=== PATIENT | male | born 1965 | race Caucasian/White ===

== ENCOUNTER 2022-01-21 13:36 | Outpatient (REF) | payer BC, SELFPAY ==
[2022-01-21 14:01] LABS: Hemoglobin* 14.7 gm/dL (13.5-17.5)
[2022-01-22 17:25] LABS: Prostate Specific Antigen Free 0.2 ng/mL; Prostate Specific Antigen%Free 20 %; Sex Hormone Binding Globulin 29 nmol/L (19-76); Testosterone, Adult Male 673 ng/dL (300-890); Testosterone, Free Calculation 142 pg/mL (47-244); Testosterone, Percentage Free 2.1 % (1.6-2.9)
== END 2022-01-21 13:37 | disposition home or self-care (01) ==
LOC: NPINS 13:36
DX: E29.1 Testicular hypofunction (principal)
CPT/HCPCS: 84153; 84154; 84270; 84402; 84403; 85018

== ENCOUNTER 2022-08-20 03:02 | Emergency (ER) | payer BC, SELFPAY ==
[2022-08-20 03:08] VITALS: BP 155/87; PULSE 84; RESP 22; TEMP 36.7; O2SAT 100; BMI 31.9
--- NOTE | 2022-08-20 03:25 | ED_ITS ---
HPI - General Adult General Chief complaint: Flank Pain Stated complaint: Vomitting, pain r lower back Time Seen by Provider: 08/20/22 03:13 Source: patient Mode of arrival: ambulatory Limitations: no limitations History of Present Illness HPI narrative: 57-year-old male with prior history of kidney stone presents to the emergency department with right flank pain that started approximately 14 hours ago. Initially was mild and dull and achy, did not raise significant concern. He took 1 Aleve tablet in improved moderately. He took some Tylenol at 5:00 p.m.. At that time pain did not radiate was not accompanied by fever, nausea or any other significant symptoms. He has not noted any dysuria or any blood in his urine. He says that approximately 11:30 p.m. which is about 3-1/2 hours prior to arrival, the pain became much more severe, accompanied by vomiting. Pain is now in the right flank area but is also wrapping around the right inguinal area. It is accompanied by significant nausea. Pain does come in crampy waves. No trauma or injury. No history of chronic kidney disease. Past medical history notable for kidney stone about 10-12 years ago per his estimate that did not require surgery or other major intervention. He also reports a history of hypertension, hyperlipidemia and erectile dysfunction. Home meds are amlodipine, metoprolol, losartan, statin and daily Cialis. Surgical history notable for remote lumbar fusion and what sounds like a trans urethral prostate resection. Social history reviewed, nonsmoker, denies intoxication. ROS is notable for the urinary and generalized symptoms as well as she eyes above. Otherwise he denies times 12 systems. Related Data Home Medications Medication Instructions Recorded Confirmed tadalafil 5 mg tablet 5 mg PO DAILY 08/20/22 08/20/22 Previous Rx's Medication Instructions Recorded amlodipine 10 mg tablet 10 mg PO QDAY #90 tabs 11/14/21 metoprolol succinate 100 mg 100 mg PO QDAY #90 tabs 11/14/21 tablet,extended release 24 hr atorvastatin 20 mg tablet 20 mg PO QDAY #90 tabs 11/18/21 losartan 100 mg tablet See Rx Instructions .Route 05/07/22 .COMPLEX #90 tabs prednisone 20 mg tablet 20 mg PO BID #10 tabs 08/20/22 Allergies Allergy/AdvReac Type Severity Reaction Status Date / Time No Known Drug Allergies Allergy Verified 08/20/22 03:10 [facility] Medical History (Updated 08/20/22 @ 04:46 by Fani Steen MD) History of kidney stones ?Z87.442 - Personal history of urinary calculi (ICD-10) Social History Smoking Status: Unknown if ever smoked How often do you have a drink containing alcohol: never AUDIT-C Alcohol total score: 0 Non-prescribed substance use: denies use Exam Const: Vital Signs, click to edit/add: Vital Signs - 24 hr 08/20/22 03:08 08/20/22 04:18 Temperature 98.1 F Pulse Rate [Left P ulse Oximeter] 84 Respiratory Rate 22 16 Blood Pressure [Ri ght Upper Arm] 155/87 H Pulse Oximetry 100 93 Oxygen Delivery Me thod Nasal Cannula Oxygen Flow Rate 1 Documenting provider has reviewed patient's vital signs: yes Common normals: alert Other: Mild distress, good historian. Cooperative. HENMT: Common normals: normocephalic Head and scalp: normocephalic Face and sinus: normal facial exam Mouth: oral and palatal mucosa normal Eye: Common normals: conjunctivae normal General eye: normal appearance of both eyes Conjunctiva: conjunctiva(e) normal Neck & C-Spine: Common normals: no lymphadenopathy Resp: Common normals: normal respiratory effort, no use of accessory muscles and clear to auscultation bilaterally Effort & inspection: able to speak in complete sentences Auscultation: clear to auscultation bilaterally Cardio: Common normals: regular rate, regular rhythm, S1 normal heart sound, S2 normal heart sound and no murmurs Rate: regular rate Rhythm: regular rhythm Heart sounds: S1 normal and S2 normal GI: Common normals: Normal to inspection, nondistended, normoactive bowel sounds present, soft to palpation, non-tender, no hepatosplenomegaly and no masses Palpation: soft and no hepatosplenomegaly : Other: Right CVA tenderness, left side normal. Back & Pelvis: Common normals: thoracic and lumbar spine normal to inspection and no thoracic nor lumbar tenderness Extremity: Common normals: normal to inspection, normal capillary refill and no pedal edema Neuro: Sensorium/orientation: alert Motor exam: no tremor noted and no movement abnormalities noted Psych: Attitude: engaged Memory/cognition: memory grossly intact Insight: insight good Judgement: judgment good Skin: Common normals: no rashes or lesions noted General skin exam: no rashes or lesions noted Course Vital Signs Vital signs: Initial Vital Signs Temperature 98.1 F 08/20/22 03:08 Temperature Source Temporal Artery Scan 08/20/22 03:08 Pulse Rate 84 08/20/22 03:08 Respiratory Rate 22 08/20/22 03:08 Blood Pressure 155/87 H 08/20/22 03:08 Blood Pressure Mean 109 08/20/22 03:08 Blood Pressure Position Sitting 08/20/22 03:08 Pulse Oximetry 100 08/20/22 03:08 Vital Signs Temperature 98.1 F 08/20/22 03:08 Pulse Rate 84 08/20/22 03:08 Respiratory Rate 22 08/20/22 03:08 Blood Pressure 155/87 H 08/20/22 03:08 Pulse Oximetry 100 08/20/22 03:08 Temperature 98.1 F 08/20/22 03:08 Pulse Rate 84 08/20/22 03:08 Respiratory Rate 16 08/20/22 04:18 Blood Pressure 155/87 H 08/20/22 03:08 Pulse Oximetry 93 08/20/22 04:18 Oxygen Delivery Method Nasal Cannula 08/20/22 04:18 Oxygen Flow Rate 1 08/20/22 04:18 Medical Decision Making MDM Narrative Medical decision making narrative: Suspect kidney stone, cannot rule out lumbar spine, other musculoskeletal etiologies, appendicitis, colitis or other intra-abdominal pathology. Patient initially unable to provide urine sample. Counseled him that this would matter because the type of CT scan I am able to order would be better determined by knowing if there was presence of any blood in his urine or not. Will place IV, give 15 mg of IV Toradol and 4 mg of Zofran. Will start normal saline. Anticipate CT scan of the abdomen pelvis without contrast, awaiting urinalysis and basic labs. Update: Patient did not have significant improvement on Toradol which is quite telling. Given 4 mg of IV morphine with improvement in pain. CT scan did not show any kidney stone but did show the source was pain which is likely lumbar facet arthritis. Findings discussed with patient. Reassuring white count, CRP and remainder of labs. Will start prednisone 40 mg p.o. x1 and continue on 20 mg b.i.d.. Will give 10 mg of Flexeril p.o. x1, 5 mg of oxycodone again. He will need a clark driver. Limited supply of oxycodone, counseled on Tylenol and ibuprofen. Alarm symptoms reviewed. Will need primary care follow-up. Off work tonight. Discussed that he will need a long-term plan to manage this condition as he is likely to get further flares. Lab Data Lab results reviewed: Yes I reviewed the patient's lab results Lab results narrative: Labs all reassuring Labs: Lab Results 08/20/22 08/20/22 Range/Units 03:25 03:28 WBC 10.03 (4.50-11.00) K/uL RBC 5.02 (4.30-5.90) m/uL Hgb 15.5 (13.5-17.5) gm/dL Hct 44.8 (37.0-53.0) % MCV 89 (80-100) fL MCH 31 (26-34) pg MCHC 35 (32-36) gm/dL RDW Coeff of Jose Elias 12.5 (11.5-15.5) % Plt Count 248 (140-440) K/uL Neut % (Auto) 80.1 H (42.0-72.0) % Lymph % (Auto) 15.2 L (20-44) % [place] % (Auto) 3.6 (0.0-11.0) % Eos % (Auto) 0.5 (0.0-7.0) % Baso % (Auto) 0.4 (0.0-3.0) % Neut # (Auto) 8.00 H (1.7-7.0) K/uL Lymph # (Auto) 1.50 (0.90-2.90) K/uL [place] # (Auto) 0.40 (0.00-0.90) K/UL Eos # (Auto) 0.05 (0.00-0.50) K/uL Baso # (Auto) 0.04 (0.00-0.30) K/uL Sodium 136 (135-149) mmol/L Potassium 4.0 (3.6-5.1) mmol/L Chloride 102 (96-114) mmol/L Carbon Dioxide 23 (20-32) mmol/L BUN 19 (7-30) mg/dL Creatinine 1.0 (0.5-1.5) mg/dL Estimated Creat Clear 78.85 Estimated GFR 88 ml/min Glucose 146 H (60-115) mg/dL Calcium 9.6 (8.4-10.6) mg/dL C-Reactive Protein < 0.5 L (0.5-1.0) mg/dL Urine Color Yellow (Yellow) Urine Appearance Clear (Clear) Urine pH 7.5 (5.0-8.5) Ur Specific [place] 1.020 (1.000-1.030) Urine Protein 1+ A (Negative) Urine Glucose (UA) Negative (Negative) Urine Ketones Trace A (Negative) Urine Blood Trace-intact A (Negative) Urine Nitrite Negative (Negative) Urine Bilirubin Negative (Negative) Urine Urobilinogen 0.2 (0.2-1.0) Ur Leukocyte Esterase Negative (Negative) Urine RBC 0-2 (0-2) Urine WBC 0-2 (0-5) Ur Squamous Epith Cells Few (None-Few) Amorphous Sediment Few A (None) Urine Bacteria Few A (None) Imaging Data CT scan - pelvis: Attestation: I have reviewed the pertinent imaging results. My impression: No stone. Some constipation. Lots of lumbar arthropathy Radiologist's impression: IMPRESSION: No evidence of radiopaque nephroureterolithiasis or hydroureteronephrosis. No evidence of acute intra-abdominal/pelvic process on this unenhanced CT. Postoperative changes from L4-S1 posterior spinal fusion and decompression along with interbody disc spacers at these levels. There is severe degenerative spondylosis at the subjacent L3-4 level with 7-8 mm of retrolisthesis of L3 on L4. This along with disc bulge and severe facet arthropathy results in moderate- severe spinal canal stenosis at L3-L4. Discharge Plan Discharge Clinical Impression: Arthritis of facet joint of lumbar spine Patient Disposition: Home w/ Parent or Adult Condition: Improved Instructions: Lumbar Radiculopathy (ED) Additional Instructions: The CT scan reveals no signs of kidney stones which is great news. The blood work also confirms no infection, no new inflammatory condition or other abnormality. It does show a new area of arthritis on the side part of your lower spine, different than your previous back problems. Unfortunately, this is likely to flare up on you again and will require a long-term plan. I will be starting on some prednisone, and anti-inflammatory medication that you can take for the next few days. It should make your pain markedly better. As you probably remember it tends to work well with the 1st flare but may not be as effective in future flares. I strongly recommend that you follow-up with your primary care doctor and/or neurosurgeon to consider advanced imaging and further management. You may benefit from injections or other interventions down the road. Your next dose of prednisone will be around 2:00 p.m. this afternoon. Continue taking this twice daily for 5 days. I recommend not taking it within 5 hours of bedtime as it can make it difficult to sleep. It is okay if your doses are only spaced 8 hours apart to accommodate this. For pain, ibuprofen 600 mg every 6 hours and or Tylenol 1000 mg every 6 hours. Will give you a limited supply of oxycodone to use for severe pain. You will need to follow-up with your primary care or neurosurgery team for additional narcotic medication if needed, we do not recommend these medications long-term. If you have sudden loss of bowel or bladder function, significant weakness in your right leg, you should seek re-evaluation Activity Level: Activity as Tolerated Discharge Diet: Regular Prescriptions: New prednisone 20 mg tablet 20 mg PO BID Qty: 10 0RF No Action tadalafil 5 mg tablet 5 mg PO DAILY metoprolol succinate 100 mg tablet extended release 24 hr 100 mg PO QDAY Qty: 90 3RF amlodipine 10 mg tablet 10 mg PO QDAY Qty: 90 3RF atorvastatin 20 mg tablet 20 mg PO QDAY Qty: 90 3RF losartan 100 mg tablet See Rx Instructions .ROUTE .COMPLEX Qty: 90 3RF Dose Instruction: Take 1 tablet by mouth once daily Rx Instructions: Take 1 tablet by mouth once daily Follow Up/Referrals: Out Lab,Clinic [Referring] - Stand Alone Forms: [employer] Info Instructions
[2022-08-20] MEDS: KETOROLAC 15 MG/ML inj IVP (03:30)
[2022-08-20 03:35] LABS: Basophils Absolute Auto 0.04 K/uL (0.00-0.30); Basophils Percent Auto 0.4 % (0.0-3.0); Eosinophils Absolute Auto 0.05 K/uL (0.00-0.50); Eosinophils Percent Auto 0.5 % (0.0-7.0); Hematocrit 44.8 % (37.0-53.0); Hemoglobin* 15.5 gm/dL (13.5-17.5); Immature Granulocytes Abs Auto 0.02 K/uL (0.00-0.30); Immature Granulocytes Pct Auto 0.2 %; Lymphocytes Percent Auto 15.2 % (20-44); Mean Corpuscular HGB Conc 35 gm/dL (32-36); Mean Corpuscular Hemoglobin 31 pg (26-34); Mean Corpuscular Volume 89 fL (80-100); Monocytes Percent Auto 3.6 % (0.0-11.0); Neutrophils Percent Auto 80.1 % (42.0-72.0); Platelet Count* 248 K/uL (140-440); RDW Coefficient of Variation % 12.5 % (11.5-15.5); Red Blood Count 5.02 m/uL (4.30-5.90); White Blood Count* 10.03 K/uL (4.50-11.00)
[2022-08-20 03:35] LABS: Appearance Urine Clear (Clear); Bilirubin Urine Negative (Negative); Blood Urine Trace-intact (Negative); Color Urine Yellow (Yellow); Glucose Urine Negative (Negative); Ketones Urine Trace (Negative); Leukocyte Esterase Urine Negative (Negative); Nitrite Urine Negative (Negative); Protein Urine 1+ (Negative); Urobilinogen Urine 0.2 (0.2-1.0); pH Urine 7.5 (5.0-8.5)
[2022-08-20] MEDS: ONDANSETRON 2 MG/ML inj 4 MG IVP (03:35)
[2022-08-20 03:37] LABS: Slide Review Reflex No
[2022-08-20 03:42] LABS: Amorphous Sediment Urine Few; Bacteria Urine Few; RBC Urine 0-2 (0-2); Squamous Epithelial Cell Urine Few (None-Few); WBC Urine 0-2 (0-5)
[2022-08-20 03:47] LABS: Chloride* 102 mmol/L (96-114); Sodium* 136 mmol/L (135-149)
--- NOTE | 2022-08-20 03:47 | CRLHL7_ITS ---
For Patients: As a result of the Century Cures Act, medical imaging exams and procedure reports are released immediately into your electronic medical record. You may view this report before your referring provider. If you have questions, please contact your health care provider. INDICATION: flank pain TECHNIQUE: CT abdomen and pelvis without contrast, stone protocol. COMPARISON: None. FINDINGS: Kidney/ureters: Kidneys are normal in caliber. No kidney or ureteral stones and no hydronephrosis. No sign of perinephric inflammation. Ureters are normal in caliber. Liver/gallbladder/bile ducts: The liver is normal in size, shape and attenuation. Few subcentimeter hypodensities throughout the liver too small to characterize but statistically represent sister meningiomas. Suspect cholelithiasis. No biliary dilatation. Spleen/pancreas/adrenal glands: The spleen, adrenal glands and pancreas are within normal limits. GI tract: The bowel is unremarkable. Normal appendix. Abdominal wall/omentum/peritoneum: No free air or significant free fluid. No mass or inflammation. Vasculature: Abdominal aorta normal caliber with mild atherosclerosis. Lymph nodes: No lymphadenopathy. Pelvis: Unremarkable pelvis. Lower chest: Unremarkable. Bones: Postoperative changes from L4-S1 posterior spinal fusion and decompression along with interbody disc spacers at these levels. There is severe degenerative spondylosis at the subjacent L3-4 level with 7-8 mm of retrolisthesis of L3 on L4. This along with disc bulge and severe facet arthropathy results in moderate-severe spinal canal stenosis at L3-L4. IMPRESSION: No evidence of radiopaque nephroureterolithiasis or hydroureteronephrosis. No evidence of acute intra-abdominal/pelvic process on this unenhanced CT. Postoperative changes from L4-S1 posterior spinal fusion and decompression along with interbody disc spacers at these levels. There is severe degenerative spondylosis at the subjacent L3-4 level with 7-8 mm of retrolisthesis of L3 on L4. This along with disc bulge and severe facet arthropathy results in moderate-severe spinal canal stenosis at L3-L4. Please note that all CT scans at this facility use dose modulation, iterative reconstruction, and/or weight-based dosing when appropriate to reduce radiation dose to as low as reasonably achievable. Dictated by Mak Hernandez MD @ 08/20/2022 4:32:39 AM (Electronically Signed)
[2022-08-20 03:49] LABS: Est. Creatinine Clearance* 78.85; Estimated Glomerular Filt Rate 88 ml/min
[2022-08-20 03:50] LABS: Blood Urea Nitrogen* 19 mg/dL (7-30); Carbon Dioxide* 23 mmol/L (20-32)
[2022-08-20 03:51] LABS: Calcium* 9.6 mg/dL (8.4-10.6); Glucose* 146 mg/dL (60-115)
[2022-08-20 03:53] LABS: C Reactive Protein* < 0.5 mg/dL (0.5-1.0)
[2022-08-20] MEDS: 0.9 % SODIUM CHLORIDE 1000 ml 1,000 ML 6000 ML IV (04:04)
[2022-08-20] MEDS: MORPHINE 4 MG/ML INJ IVP (04:05)
[2022-08-20 04:18] VITALS: RESP 16; O2SAT 93
[2022-08-20 04:20] VITALS: O2SAT 94
[2022-08-20] MEDS: CYCLOBENZAPRINE HCL 10 MG TABLET PO (04:48)
[2022-08-20] MEDS: OXYCODONE 5 MG TABLET PO (04:48)
[2022-08-20] MEDS: predniSONE 20 MG TABLET 40 MG PO (04:48)
[2022-08-20 04:51] VITALS: RESP 16; O2SAT 96
[2022-08-20 05:00] VITALS: BP 143/81; PULSE 76; RESP 16; TEMP 36.7
== END 2022-08-20 05:29 | disposition home or self-care (01) ==
PROVIDERS: Emergency Provider Family Medicine
DX: M47.816 Spondylosis without myelopathy or radiculopathy, lumbar region (principal)
CPT/HCPCS: 36415; 74176; 80048; 81003; 81015; 85025; 86140; 87086; 96374; 96375; 99283; 99284; A9270; J1885; J2270; J2405; J7030; J7512

== ENCOUNTER 2022-10-24 11:58 | Outpatient (REF) | payer BC, SELFPAY ==
--- OUTSIDE RECORDS SUMMARY | 2022-10-24 12:05 | XMS_ITS | Continuity of Care Document ---
Author Name Unknown Organization [facility] Address [address] [place] [address] Phone Care Team Providers [employer] Executive Director Name Role Phone Jos Larson MD Unavailable Unavailable Medications Medication Instructions Dosage Effective Dates (start - stop) Status Comments tramadol 50 mg tablet take 1 tablet by ORAL route every 6 - 8 hours PRN/PAIN 50 MG - Active pt can pay OO P prednisone 10 mg tablet take 4 tabs once daily x 5 days, 2 tabs once daily x 7 days, 1 tab once daily x 10 days. Take with food. - Active oxycodone 5 mg Tab one every 8 hours as needed - Active Flexeril 10 mg Tab i tab PO up to 3x daily - Active oxycodone 5 mg Tab every 4-6 hours as needed - Active Medrol (Abhishek) 4 mg Tabs in a Dose Pack - Active Valium 5 mg Tab - Active Elavil 25 mgTABLET - Active Vicodin 5 mg-500 mg Tab every 8 hours as needed - Active tramadol 50 mg tablet take 1 tablet by ORAL route every 6 - 8 hours PRN/PAIN 50 MG - No Longer Active pt can pay OOP Procedures Procedure Date Office/Outpatient Visit,Est, Mod 2022 Office/Outpatient Visit,New, Mod 2022 Postop followup visit X-ray exam lower spine 2-3 views 2008 Postop followup visit X-ray exam lower spine 2-3 views 2008 Lumbar spine fusion, posterolateral Spine fusion, each add'lvertebra 2008 Lumbar spine fusion w/bone graft 2008 Spinal fusion, ea add'l interspace Remove lumbar spine lamina, 1 seg Remove added spine lamina, 1 seg 2008 Insert spine seg fix, post, 3-6 seg Apply spinal prosthetic device 09 Aspiration, bone marrow Allograft, spine surg, morselized PA Assist Lumbar spine fusion, posterola teral PA Assist Spine fusion, each add'lverteb ra PA Assist Remove lumbar spine lamina, 1 seg PA Assist Remove added spine lamina, 1 s eg PA Assist Insert spine seg fix, post, 3- 6 seg Office consultation, moderate 8 X-ray exam lwr spine, min 4 views Advance Directives Directive Yes / No Effective Date File Name No Information Encounters Encounter Description Practice Location Reason(s) For Visit Diagnoses Date Provider Providers Copied on Encounter [facility], [address], [place], [place], [id number], [place] tel:[phone] [facility] No Information [address] [facility], [address] [place] [address], [address], [place], [place], [id number], [place]. tel:[phone] [facility], [address], [place], [place], [id number], [place] tel:[phone] [facility] No Information 3 Larson Jos. [facility], [address] [place] [address], [address], [place], [place], [id number], . tel:[phone] Office/Outpa tient Visit,Est, Mod [facility], [address], [place], [place], [id number], [place] tel:[phone] [facility] Spinal stenosis, lumbar region with neurogenic claudicationEnc ounter for follow-up examination after completed treatment for conditions other than malignant neoplasm [address] [facility], [address], [address], [place], [place], [address], [place]. tel:[phone] Referring Provider: Jos Bean, [facility] [address], [address], [place], [address] . tel:[phone] Office/Outpa tient Visit,New, [facility], [address], [place], [place], [id number], [place] tel:[phone] [facility] Other spondylosis, lumbar regionArthrodes is statusSpinal stenosis, lumbar region without neurogenic claudication [address] [facility], [address], [place], [place], [id number], [place]. tel:[phone] Referring Provider: Jos Bean, [facility] [address], [address], [place], [address] . tel:[phone] [facility], [address] [place], [place] [address]Suite [facility], [place], [address], [place] tel:[phone] [facility] No Information [address] [facility], [address], [address], [place], [place], [id number], [place]. tel:[phone] [facility], [address] [place], [place] [address]Suite [facility], [place], [address], [place] tel:[phone] [facility] No Information [address] [facility], [address], [address], [place], [place], [id number], [place]. tel:[phone] [facility], [address], [place], [address], [place] tel:[phone] [facility] No Information [address] [facility], [address], [address], [place], [place], [id number], [place]. tel:[phone] [facility], [address], [place], [address], [place] tel:[phone] [facility] No Information [address] [facility], [address], [address], [place], [place], [id number], [place]. tel:[phone] [facility], [address], [place], [address], [place] tel:[phone] [facility] No Information [address] [facility], [address] [place] [address], [address], [place], [place], [id number], [place]. tel:[phone] [facility], [address], [place], [address], [place] tel:[phone] [facility] No Information [address] [facility], [address] [place] [address], [address], [place], [place], [id number], [place]. tel:[phone] Office consultation , moderate Z [facility], [address], [place], [address], [place] tel:[phone] [facility] No Information [address] [facility], [address], [address], [place], [place], [address], [place]. tel:[phone] Family History Family Member Type Diagnosis Age At Onset No Information Payers Payer name Insurance type Covered libertarian ID Dayami ny(s) [facility] [id number] Social History Type Description Quantity Date Captured Comments Alcohol Use Details Unknown Caffeine Use Details Unknown Tobacco Use Status No Information Smoking Status No Information Sex Male Chief Complaint And Reason For Visit No Information Reason For Referral Reason For Referral No Information Plan Of Treatment Date Type Action Status No Information History Of Present Illness Encounter Date Complaint History Of Prese nt Illness No Information Functional Status Date Functional Assessmen t No Information Instructions Date Instruction Additional Infor mation No Information Assessments Type Assessment Date No Information Patient Care Teams Name Effective Dates (start - stop) Status Members No Information
[2022-10-24 12:35] LABS: Hemoglobin* 14.2 gm/dL (13.5-17.5)
[2022-10-25 21:54] LABS: Sex Hormone Binding Globulin 28 nmol/L (19-76); Testosterone, Adult Male 341 ng/dL (300-890); Testosterone, Free Calculation 67 pg/mL (47-244)
== END 2022-10-24 11:59 | disposition home or self-care (01) ==
LOC: LAB 11:58
DX: E29.1 Testicular hypofunction (principal)
CPT/HCPCS: 36415; 84270; 84402; 84403; 85018

== ENCOUNTER 2022-11-26 14:47 | Outpatient (CLI) | payer BC, SELFPAY | END 2022-11-26 14:48 | disposition home or self-care (01) | PROVIDERS: PCP Family Medicine; Visit Provider Family Medicine | DX: I10 Essential (primary) hypertension (principal); E78.5 Hyperlipidemia, unspecified; E66.9 Obesity, unspecified; N40.0 Benign prostatic hyperplasia without lower urinary tract symptoms; Z12.5 Encounter for screening for malignant neoplasm of prostate | CPT/HCPCS: 80048; 80061; 84153 ==

== ENCOUNTER 2023-06-29 14:00 | Outpatient (REF) | payer BC, SELFPAY ==
--- OUTSIDE RECORDS SUMMARY | 2023-06-29 14:04 | XMS_ITS | Continuity of Care Document ---
Author Name Unknown Organization [facility] Address [address] [place] [address] Phone Care Team Providers Care Quartz Cutter Name Role Phone Jos Larson MD Unavailable [...] every 8 hours as needed - Active oxycodone 5 mg Tab every 4-6 hours as needed - Active Flexeril 10 mg Tab i tab PO up to 3x daily - Active Valium 5 mg Tab - Active Medrol (Abhishek) 4 mg Tabs in a Dose Pack - Active Vicodin 5 mg-500 mg Tab every 8 hours as needed - Active Elavil 25 mgTABLET - Active tramadol 50 mg tablet take 1 tablet by ORAL route every 6 - 8 hours PRN/PAIN 50 MG - No Longer Active pt can pay OOP Procedures Procedure Date Office/Outpatient Visit,Est, Mod 2023 OFFICE/OUTPATIENT VISIT EST Phone Office/Outpatient Visit,Est, Mod 2022 Office/Outpatient Visit,New, Mod [...] Diagnoses Date Provider Providers Copied on Encounter Office/Outpa tient Visit,Est, Mod [facility], [address], [place], [place], [id number], [place] tel:[phone] [facility] Spinal stenosis, lumbar region with neurogenic claudicationOth er intervertebral disc degeneration, lumbar region 4 Neo Arguello. [facility] [place], [address], [address], [place], [place], [id number], [place]. tel:[phone] Referring Provider: Jos Bean, [facility] [place] [address], [address], [place], [address] . tel:[phone] OFFICE/OUTPA TIENT VISIT EST Phone [facility], [address], [place], [place], [id number], [place] tel:[phone] [facility] - [facility] No Information 3 Neo Arguello. [facility] [place], [address], [address], [place], [place], [id number], [place]. tel:[phone] Referring Provider: Jos Bean, [facility] [place] [address], [address], [place], [address] . tel:[phone] [facility], [address], [place], [place], [id number], [place] tel:[phone] [facility] No Information 3 Neo Arguello. [facility], [address] [place] [address], [address], [place], [place], [id number], [place]. tel:[phone] Office/Outpa tient Visit,Est, Mod [facility], [address], [place], [place], [id number], [place] tel:[phone] [facility] Spinal stenosis, lumbar region with neurogenic claudicationEnc ounter for follow-up examination after completed treatment for conditions other than malignant neoplasm 3 Neo Arguello. [facility] [place], [address] [place] [address], [address], [place], [place], [id number], [place]. tel:[phone] Referring Provider: Jos Bean, [facility] [place] [address], [address], [place], [address] . tel:[phone] Office/Outpa tient Visit,New, Mod [facility], [address], [place], [place], [id number], [place] tel:[phone] [facility] Other spondylosis, lumbar regionArthrodes is statusSpinal stenosis, lumbar region without neurogenic claudication 3 Hebert Overton. [facility] [place], [address] [place] [address] [address], [place], [place], [id number], [place]. tel:[phone] Referring Provider: Jos Bean, [facility] [address], [address], [place], [address] . tel:[phone] Z [facility], [address], [place], [address], [place] tel:[phone] [facility] No Information 9 Pandiscio Karen. [facility], [address], [address], [facility], [id number], [place]. tel:[phone] Z [facility], [address], [place], [address], [place] tel:[phone] [facility] No Information 9 Pandiscio Karen. [facility], [address], [address], [facility], [id number], [place]. tel:[phone] Z [facility], [address], [place], [address], [place] tel:[phone] JANZZ [employer] No Information 9 Larson Jos. [facility], [address], [address], [facility], [place], [id number], [place]. tel:[phone] Z [facility], [address], [place], [address], [place] tel:[phone] JANZZ [employer] No Information 9 Larson Jos. [facility], [address], [address], [facility] [place], [id number], [place]. tel:[phone] Z [facility], [address], [place], [address], [place] tel:[phone] [facility] No Information 9 Larson Jos. [facility], [address], [address], [place], [place], [address], [place]. tel:[phone] Z [facility], [address] [place] [address], [address], [place] tel:[phone] [facility] No Information 8 Larson Jos. [facility] [place], [address] [place] [address], [facility] [address], [place], [place], [id number], [place]. tel:[phone] Office consultation , moderate Z [facility] [place], [address] [place] [address], [place], [address], [place] tel:[phone] [facility] No Information 8 Larson Jos. [facility], [address] [place] [address], [facility] [address], [place], [place], [id number], . tel:[phone] Family History Family Member Type Diagnosis Age At Onset No Information Payers Payer name Insurance type Covered republican ID [place](s) [facility] [id number] Social History Type Description Quantity Date Captured Comments Alcohol Use Details Unknown Caffeine Use Details Unknown Tobacco Use Status Current non-smoker Smoking Status Never smoker Non-Smoking Tobacco Use Details : No Details Available : No Details Available Sex Male Vital Signs Date / Time: Height Weight BMI Pulse Rate Blood Pressure Temperature Respiratory Rate Body Surface Area Head Circumference Head Circ. Percentile Wt./[place]rick. Percentile BMI percentile Pulse Ox Inhaled Ox 8:24 AM 67.75 in 98.928 kg (218.10 lbs) 33.4 0 kg/m eter (2) Chief Complaint And Reason For Visit No Information Reason For Referral Reason For Referral No Information Plan Of Treatment Date Type Action Status Appointment Dannie Shaw BOOKED Appointment Dannie Shaw BOOKED Appointment Dannie Shaw BOOKED History Of Present Illness Encounter Date Complaint History Of Prese nt Illness No Information Functional Status Date Functional Assessmen t No Information Instructions Date Instruction Additional Infor mation No Information Assessments Type Assessment Date No Information Patient Care Teams Name Effective Dates (start - stop) Status Members No Information
--- OUTSIDE RECORDS SUMMARY | 2023-06-29 14:04 | XMS_ITS | Clinical Summary ---
Author Name Unknown Organization [facility] Address [place], [place] [address] Care Team Providers Care Associate Director Data & Analytics Name Role Phone Pcp, No Primary Care Provider Unavailabl e Allergies No known active allergies Medications Medication Sig Dispensed Refills Start Date End Date Status tamsulosin (FLOMAX) 0.4 mg capsule Take 1 capsule by mouth once daily after a meal. 5 capsule 0 11/19/2011 Active HYDROcodone-acetam inophen, 5-500 mg, (VICODIN) Tab tablet Take 1-2 tablets by mouth every 6 hours if needed for Pain. Max acetaminophen dose: 4000mg in 24 hrs. 15 tablet 0 11/18/2011 Active Social History Tobacco Use Types Packs/Day Years Used Date Smoking Tobacco: Former Alcohol Use Standard Drinks/Week Comments Not Asked 0 (1 standard drink = 0.6 oz pur e alcohol) Alcoholic Drinks/day: 0 Sex and Gender Information Value Date Recorded Sex Assigned at Not on file Gender Identity Not on file Sexual Orientation Not on file Obstetrics History Last Filed Vital Signs Vital Sign Reading Time Taken Comments Blood Pressure 139/82 11/18/2011 9:35 AM CDT Pulse 80 11/18/2011 9:35 AM CDT Temperature 36.1 ??C (97 ??F) 11/18/2011 6:46 AM CDT Respiratory Rate 20 11/18/2011 8:23 AM CDT Oxygen Saturation 95% 11/18/2011 9:35 AM CDT Inhaled Oxygen Concentration - - Weight 94.3 kg (208 lb) 11/18/2011 6:46 AM CDT Height 172.7 cm (5' 8) 11/18/2011 6:46 AM CDT Body Mass Index 31.63 11/18/2011 6:46 AM CDT Plan of Treatment Upcoming Encounters Date Type Department Care Team (Latest Contact Info) Description 07/22/2023 9:55 AM CDT Hospital Encounter [address] [address] Jos Larson MD [address] [place] [address] 07/22/2023 9:55 AM CDT - 07/22/2023 3:58 PM CDT Surgery [address] [address] Jos Larson MD [address] [place] [address] ANTERIOR POSTERIOR INTERBODY FUSION WITH INSTRUMENTATION L1-L4, DECOMPRESSION LATERAL RECESS AND FORAMINAL L2-L4 BILATERAL, BONE MARROW ASPIRATION Scheduled Procedures Name Priority Associated Diagnoses Date/Ti me FUSION ANTERIOR POSTERIOR DIRECT LATERAL SPINE LEVEL 03 1) Stenosis, Lumbar - w/Neurogenic Claudication M48.062 2) DDD, Lumbar M51.36 07/22/2023 9:55 AM CDT Health Maintenance Due Date Last Done Comments COVID-19 vaccine series (#1) 02/07/1966 Tdap 1976 Depression screening for age 12+ 1977 HIV for age 15-65 1980 BMI (ht and wt on same day) for age 18+ 08/08/1983 Hepatitis C screening for ag e 18-79 08/08/1983 Tetanus booster 1985 Colonoscopy through age 75 2010 Lipids for age 45-75 2010 Zoster (shingles) series for age 50+ (1 of 2) 08/08/2015 Influenza for age 50-64 01/09/2023 Pneumococcal series for age 6-64 Aged Out No longer eligible based on patient's age to complete this topic Care Teams Associate Director Data & Analytics Relationship Specialty Start Date End Date Pcp, No . PCP - General 11/18/11
--- OUTSIDE RECORDS SUMMARY | 2023-06-29 14:04 | XMS_ITS | Clinical Summary ---
Author Name Unknown Organization [facility] Address [address] [place] [address] Care Team Providers Care Cow Puncher Name Role Phone Md, Not Listed Primary Care Provider Unavailabl e Clinic, Not Listed Unavailable Unavailable Allergies No known active allergies Medications Medication Sig Dispensed Refills Start Date End Date Status Losartan (COZAAR) 100 mg oral tablet Take 100 mg by mouth once daily. 07/12/2021 Active metoprolol succinate, XL, (TOPROL XL) 100 mg oral extended release tablet 24 HR Take 100 mg by mouth once daily. 07/12/2021 Active Tadalafil 5 mg oral tablet Take 1 tablet by mouth once daily. 07/12/2021 Active testosterone cypionate (DEPO-TESTOSTERONE ) 200 mg/mL IM Oil IM injection Inject into the muscle every 7 (seven) days. Every Thursday04/29/2021 Active cefuroxime (CEFTIN) 500 mg oral tablet Take 1 tablet (500 mg) by mouth twice a day. 10 tablet 07/19/2021 Active docusate sodium (COLACE) 100 mg oral capsule Take 1 capsule (100 mg) by mouth twice a day as needed for constipation 60 capsule 07/19/2021 Active oxyCODONE, immediate release, (ROXICODONE) 5 mg oral tablet Take 1 tablet (5 mg) by mouth every 6 (six) hours as needed. 12 tablet 07/19/2021 Active Social History Tobacco Use Types Packs/Day Years Used Date Smoking Tobacco: Never Smokeless Tobacco: Never Alcohol Use Standard Drinks/Week Comments Not Currently 0 (1 standard drink = 0.6 oz pur e alcohol) Sex and Gender Information Value Date Recorded Sex Assigned at Not on file Gender Identity Not on file Sexual Orientation Not on file Last Filed Vital Signs Vital Sign Reading Time Taken Comments Blood Pressure 133/82 07/19/2021 1:00 PM ERP CONSULTANT Pulse 70 07/19/2021 1:00 PM ERP CONSULTANT Temperature 36.7 ??C (98.1 ??F) 07/19/2021 12:[address] Respiratory Rate 17 07/19/2021 1:00 PM ERP CONSULTANT Oxygen Saturation 93% 07/19/2021 1:00 PM ERP CONSULTANT Inhaled Oxygen Concentration - - Weight 88.5 kg (195 lb) 05/27/2021 4:15 PM ERP CONSULTANT Height 172.7 cm (5' 8) 05/27/2021 4:15 PM ERP CONSULTANT Body Mass Index 29.65 05/27/2021 4:15 PM ERP CONSULTANT Plan of Treatment Health Maintenance Due Date Last Done Comments Colonoscopy 1965 Hepatitis C Screening 1965 Lipid Screening 1965 Anxiety Screening (CLINT-2) 1966 Depression Assessment (PHQ-2) 1966 Zoster Vaccine (1 of 2) 08/08/2015 Yearly Review of HCD 05/27/2022 05/27/2021 COVID-19 Vaccine ( - 2022-2 4 season) 2023 Influenza Vaccine (#1) 2023 5, 03/15/2014 Adult Tetanus Booster 02/03/2024 02/02/2014 Pneumococcal <65 Aged Out No longer e ligible based on patient's age to complete this topic Care Teams Cow Puncher Relationship Specialty Start Date End Date , Not Listed no address PCP - General Internal Medicine 06/12/21 Clinic, Not Listed PCP - Primary Care Clinic 07/19/21
--- OUTSIDE RECORDS SUMMARY | 2023-06-29 14:04 | XMS_ITS | Referral Summary ---
Author Name Unknown Organization [facility] Address [address] [place] [address] Care Team Providers Care Field Associate Name Role Phone Md, Not Listed Primary [...] Comments Blood Pressure 133/82 07/19/2021 1:00 PM WEATHERIZATION AND HOUSING INSPECTOR Pulse 70 07/19/2021 1:00 PM WEATHERIZATION AND HOUSING INSPECTOR Temperature 36.7 ??C (98.1 ??F) 07/19/2021 12:[address] Respiratory Rate 17 07/19/2021 1:00 PM WEATHERIZATION AND HOUSING INSPECTOR Oxygen Saturation 93% 07/19/2021 1:00 PM WEATHERIZATION AND HOUSING INSPECTOR Inhaled Oxygen Concentration - - Weight 88.5 kg (195 lb) 05/27/2021 4:15 PM WEATHERIZATION AND HOUSING INSPECTOR Height 172.7 cm (5' 8) 05/27/2021 4:15 PM WEATHERIZATION AND HOUSING INSPECTOR Body Mass Index 29.65 05/27/2021 4:15 PM WEATHERIZATION AND HOUSING INSPECTOR Plan of Treatment Not on file Care Teams Field Associate Relationship Specialty Start Date End Date , Not Listed no address PCP - General Internal Medicine 06/12/21 Clinic, Not Listed PCP - Primary Care Clinic 07/19/21
[2023-06-29 16:19] LABS: Hemoglobin* 15.3 gm/dL (13.5-17.5)
[2023-06-29 17:00] LABS: PSA Screen* 1.57 ng/mL (0.10-4.00)
[2023-07-01 17:50] LABS: Sex Hormone Binding Globulin 29 nmol/L (19-76); Testosterone, Adult Male 663 ng/dL (300-890); Testosterone, Free Calculation 140 pg/mL (47-244); Testosterone, Percentage Free 2.1 % (1.6-2.9)
== END 2023-06-29 14:01 | disposition home or self-care (01) ==
LOC: NPINS 14:00
PROVIDERS: PCP Family Medicine; Visit Provider Urology
DX: E29.1 Testicular hypofunction (principal)
CPT/HCPCS: 80048; 84270; 84402; 84403; 85018; G0103

== ENCOUNTER 2025-01-04 14:33 | Outpatient (CLI) | payer BC, SELFPAY | END 2025-01-04 14:34 | disposition home or self-care (01) | PROVIDERS: PCP Family Medicine; Visit Provider Family Medicine | DX: I10 Essential (primary) hypertension (principal); E78.5 Hyperlipidemia, unspecified; Z12.5 Encounter for screening for malignant neoplasm of prostate | CPT/HCPCS: 80048; 80061; G0103 ==